=== PATIENT | female | born 1955 | race Caucasian/White ===

== ENCOUNTER 2022-06-16 08:31 | Outpatient (CLI) | payer MEDICARE, BC, SELFPAY | END 2022-06-16 08:32 | disposition home or self-care (01) | LOC: RAD 08:33 | PROVIDERS: PCP Nurse Practitioner Family; Visit Provider Nurse Practitioner Family | DX: I71.21 Aneurysm of the ascending aorta, without rupture (principal); I51.7 Cardiomegaly; I34.0 Nonrheumatic mitral (valve) insufficiency; I35.1 Nonrheumatic aortic (valve) insufficiency | CPT/HCPCS: 93306 ==

== ENCOUNTER 2022-08-07 14:49 | Outpatient (CLI) | payer MEDICARE, BC, SELFPAY ==
[2022-08-07 21:40] LABS: Basophils Absolute Auto 0.03 K/uL (0.00-0.30); Basophils Percent Auto 0.7 % (0.0-3.0); Eosinophils Absolute Auto 0.08 K/uL (0.00-0.50); Eosinophils Percent Auto 1.7 % (0.0-7.0); Hematocrit 40.7 % (33.0-51.0); Hemoglobin* 13.4 gm/dL (12.0-16.0); Immature Granulocytes Abs Auto 0.01 K/uL (0.00-0.30); Immature Granulocytes Pct Auto 0.2 %; Lymphocytes Absolute Auto 1.48 K/uL (0.90-2.90); Lymphocytes Percent Auto 32.1 % (20-44); Mean Corpuscular HGB Conc 33 gm/dL (32-36); Mean Corpuscular Hemoglobin 31 pg (26-34); Mean Corpuscular Volume 95 fL (80-100); Monocytes Percent Auto 7.6 % (0.0-11.0); Neutrophils Absolute Auto 2.66 K/uL (1.7-7.0); Neutrophils Percent Auto 57.7 % (42.0-72.0); Platelet Count* 239 K/uL (140-440); RDW Coefficient of Variation % 12.4 % (11.5-15.5); White Blood Count* 4.61 K/uL (4.50-11.00)
[2022-08-07 21:43] LABS: Slide Review Reflex No
[2022-08-07 21:44] LABS: Albumin* 4.1 g/dL (3.3-5.0); Chloride* 105 mmol/L (96-114); Potassium* 4.6 mmol/L (3.6-5.1); Sodium* 142 mmol/L (135-149)
[2022-08-07 21:46] LABS: Bilirubin Direct* 0.2 mg/dL (0.0-0.5); Bilirubin Total* 0.3 mg/dL (0.1-1.5); Carbon Dioxide* 31 mmol/L (20-32); Creatinine* 0.8 mg/dL (0.5-1.5); Estimated Glomerular Filt Rate 81 ml/min; Total Protein* 6.9 g/dL (6.0-8.3)
[2022-08-07 21:47] LABS: Alanine Aminotransferase* 22 U/L (4-35); Alkaline Phosphatase* 70 U/L (40-150); Aspartate Amino Transferase* 21 U/L (12-35); Blood Urea Nitrogen* 15 mg/dL (7-30); Calcium* 8.8 mg/dL (8.4-10.6); Glucose* 99 mg/dL (60-115)
[2022-08-07 22:37] LABS: Vitamin B12* 265 pg/mL (243-894)
== END 2022-08-07 14:50 | disposition home or self-care (01) ==
PROVIDERS: PCP Nurse Practitioner Family; Visit Provider Nurse Practitioner Family
DX: E03.9 Hypothyroidism, unspecified (principal); R42 Dizziness and giddiness; L60.9 Nail disorder, unspecified; Z51.81 Encounter for therapeutic drug level monitoring
CPT/HCPCS: 80048; 80076; 82607; 84443; 85025

== ENCOUNTER 2022-11-07 06:20 | Outpatient (CLI) | payer MEDICARE, BC, SELFPAY | END 2022-11-07 06:21 | disposition home or self-care (01) | PROVIDERS: PCP Nurse Practitioner Family; Visit Provider Nurse Practitioner Family | DX: Z79.899 Other long term (current) drug therapy (principal); B35.1 Tinea unguium | CPT/HCPCS: 80076 ==

== ENCOUNTER 2023-01-08 09:36 | Outpatient (CLI) | payer MEDICARE, BC, SELFPAY ==
--- NOTE | 2023-01-08 10:15 | CRLHL7_ITS ---
For Patients: As a result of the Century Cures Act, medical imaging exams and procedure reports are released immediately into your electronic medical record. You may view this report before your referring provider. If you have questions, please contact your health care provider. BILATERAL SCREENING MAMMOGRAM WITH COMPUTER-AIDED DETECTION AND TOMOSYNTHESIS TECHNIQUE: CC and MLO views were obtained. These mammographic images have been obtained using full-field digital technique. These mammographic images were interpreted with the benefit of computer-aided detection. Breast Tomosynthesis was used in this interpretation. COMPARISON FILM: 10/12/21, 09/30/20, 10/14/19. FINDINGS: There are scattered areas of fibroglandular density IMPRESSION: There is no radiographic evidence for malignancy. ASSESSMENT: BI-RADS Category 1: Negative RECOMMENDATION: Routine screening mammogram in 1 year. A lay language report of this examination will be provided to the patient. Vernon Crane M.D. Diagnostic Radiologist [email or web address] TIMOTEO/Dictated by: Vernon Crane MD @ 01/11/2023 12:19:00 PM (Electronically Signed)
== END 2023-01-08 09:37 | disposition home or self-care (01) ==
LOC: MAMMO 09:38
PROVIDERS: PCP Nurse Practitioner Family; Visit Provider Nurse Practitioner Family
DX: Z12.31 Encounter for screening mammogram for malignant neoplasm of breast (principal)
CPT/HCPCS: 77063; 77067

== ENCOUNTER 2023-05-25 10:33 | Outpatient (CLI) | payer MEDICARE, BC, SELFPAY ==
--- OUTSIDE RECORDS SUMMARY | 2023-05-25 10:35 | XMS_ITS | Clinical Summary ---
Author Name Unknown Organization [facility] Address [place], [place] [address] Care Team Providers Care Legal Paraprofessional Name Role Phone [place], [place] Primary Care Provider + Allergies No known active allergies Medications Medication Sig Dispensed Refills Start Date End Date Status eszopiclone (LUNESTA) 2 mg tablet Take 2 mg by mouth at bedtime. 0 08/22/2018 Active medical supply, miscellaneous (GRADUATED COMPRESSION STOCKINGS)Indication s:Venous insufficiency Compression level of 20-30 mmHg, panty hose stockings 3 Packet 3 08/29/2018 Active levothyroxine 125 mcg/mL soln Take by mouth. 0 Active fluticasone prp-sod.chl,bicarb 50 mcg- 0.9 % ksps Inhale in the nostril(s) once daily. 2 sprays in each nostril 0 Active oxyCODONE (ROXICODONE) 5 mg immediate release tabletIndications:Po st-operative pain Take 1 tablet by mouth every 4 hours if needed for Pain 15 tablet 0 11/15/2018 Active Active Problems Problem Noted Date Diagnosed Date Acute venous embolism and th rombosis of deep vessels of distal lower extremity 06/14/2005 Overview: LEFT CALF Anemia, unspecified 06/14/2005 Overview: RESOLVED Excessive or frequent menstruation Leiomyoma of uterus, unspecified Social History Tobacco Use Types Packs/Day Years Used Date Smoking Tobacco: Former Smokeless Tobacco: Never Alcohol Use Standard Drinks/Week Comments Yes 0 (1 standard drink = 0.6 oz pur e alcohol) i glass wine/ nightly Social Connections Answer Date Recorded Frequency of Communication with Friends and Fami ly Not on file 07/14/2022 Sex and Gender Information Value Date Recorded Sex Assigned at Not on file Gender Identity Not on file Sexual Orientation Not on file Obstetrics History Last Filed Vital Signs Vital Sign Reading Time Taken Comments Blood Pressure 138/77 11/18/2018 10:57 AM CDT Pulse 75 07/26/2022 10:01 AM CDT Temperature 36.3 ??C (97.3 ??F) 11/15/2018 10:12 AM C DT Respiratory Rate 16 11/18/2018 10:57 AM CDT Oxygen Saturation 98% 11/15/2018 10:36 AM CDT Inhaled Oxygen Concentration - - Weight 83.9 kg (185 lb) 07/26/2022 9:09 AM CDT Height 165.1 cm (5' 5) 07/26/2022 9:09 AM CDT Body Mass Index 30.79 07/26/2022 9:09 AM CDT Plan of Treatment Health Maintenance Due Date Last Done Comments COVID-19 vaccine series (#1) 1956 Pneumococcal series for age 65+ (1 of 2 - PCV) 963 Tdap 1967 Depression screening for age 12+ 1968 BMI (ht and wt on same day) for age 18+ 1974 Hepatitis C screening for age 18-79 1974 Tetanus booster 1976 Colonoscopy through age 75 2001 Mammogram for age 45-75 2001 Zoster (shingles) series for age 50+ (1 of 2) 05/16/19 07 Lipids for age 45-75 04/05/2010 04/05/2005 DEXA/DXA scan for age 65+ 2021 Medicare Wellness for age 65+ 2021 Influenza for age 65+ 01/12/2023 Advance Directives Latest Code Status on File Code Status Date Activated Date Inactivated Comments Full Code 11/15/2018 5:34 AM 11/15/2018 12:52 PM Care Teams Legal Paraprofessional Relationship Specialty Start Date End Date [facility] Alyssa Beltrán [address] [place] [phone] PCP - General 08/28/18
--- OUTSIDE RECORDS SUMMARY | 2023-05-25 10:36 | XMS_ITS | Clinical Summary ---
Author Name Unknown Organization [facility] Address [address] [place] [address] Care Team Providers Care Creel Cleaner Name Role Phone Elsewhere, Pcp Primary Care Provider Unavailabl e Source Comments Patient records contain information from all sites at [facility]. For routine questions regarding patient records, call [phone] during business hours, M-F 8:00 AM - 5:00 PM Central Time. Record requests for emergency care only can be directed to [phone] at any time.[facility] Allergies No known active allergies Medications Medication Sig Dispensed Refills Start Date End Date Status ibuprofen (ADVIL,MOTRIN) 200 mg tablet Take 400 mg by mouth every 6 (six) hours as needed. 0 Active diphenhydrAMINE (BENADRYL) 25 mg tablet Take 25 mg by mouth at bedtime as needed for sleep. 1/2 Tab PRN 0 Active levothyroxine (SYNTHROID, LEVOTHROID) 125 mcg tablet Take 1 tablet (125 mcg total) by mouth daily. 30 tablet 0 01/11/2022 Active Active Problems Problem Noted Date Diagnosed Date Aneurysm Aortic Ascending Without Rupture 2021 Overview: 1. Negative for acute pulmonary embolism. 2. 4.2 cm ascending thoracic aortic aneurysm without dissection. 3. Cardiac enlargement. Polyp Colon 09/23/2019 Overview: Added automatically from request for surgery [id number] Dermatitis Allergic Contact 09/23/2019 Hypothyroidism 09/17/2018 Overview: Lab Results Component Value Date TSH 1.4 10/14/2019 Resolved Problems Problem Noted Date Diagnosed Date Resolved Date Pain Foot Left 08/20/2018 11/10/2020 Overview: Added automatically from request for surgery [id number] Bunion Left 04/18/2018 12/17/2020 Overview: Added automatically from request for surgery [id number] Depression Major One Episode Mild 07/28/2014 11/10/2020 Overview: Major Depressive Disorder, Single Episode, Mild Degree Mild major depression Pain Shoulder Right 11/11/19 21 Immunizations Name Administration Dates Next Due Influenza, Seasonal, Injectable 04/20/2003 Influenza, Unspecified 04/20/2003 Tdap 10/23/2007 Family History Medical History Relation Name Comments Aneurysm Brother Carmine hemangioma in t he brain. Hypertension Brother Carmine Heart attack Father Colon cancer Grandmother Cataracts Mother Heart failure Mother Breast cancer Sister Trang Hyperlipidemia Sister Trang Hypertension Sister Trang Hypothyroidism Sister Trang Osteoarthritis Sister Trang Stroke Sister Trang brain anuerysym Relation Name Status Comments Brother Carmine Father Grandmother Mother Sister Trang Social History Tobacco Use Types Packs/Day Years Used Date Smoking Tobacco: Former Cigarettes Smokeless Tobacco: Never Comments:only smoked sociall y as teen Alcohol Use Standard Drinks/Week Comments Yes 3 (1 standard drink = 0.6 oz pur e alcohol) Humiliation, Afraid, Rape, and Kick questionnair e Answer Date Recorded Within the last year, have y ou been afraid of your partner or ex-partner? No 09/23/2019 Within the last year, have y ou been humiliated or emotionally abused in other ways by your partner or ex-partner? No Within the last year, have y ou been kicked, hit, slapped, or otherwise physically hurt by your partner or ex-partner? No 09/23/2019 Within the last year, have y ou been raped or forced to have any kind of sexual activity by your partner or ex-partner? No 09/23/2019 Social Connection and Isolat ion Panel [NHANES] Answer Date Recorded In a typical week, how many times do you talk on the phone with family, friends, or neighbors? More than three times a week 12/24/2020 Frequency of Social Gatherin gs with Friends and Family Not on file 12/24/2020 How often do you attend chur ch or baptism services? More than 4 times per year 12/24/2020 Active Member of Clubs or Organizations Not on f ile 12/24/2020 How often do you attend meet ings of the clubs or organizations you belong to? Patient declined 12/24/2020 Marital Status Not on file 12/24/2020 AUDIT-C Answer Date Recorded Q1: How often do you have a drink containing alc ohol? 2-3 times a week 12/24/2020 Q2: How many drinks containi ng alcohol do you have on a typical day when you are drinking? 1 or 2 12/24/2020 Q3: How often do you have si x or more drinks on one occasion? Never 12/24/2020 Overall Financial Resource Strain (CARDIA) Answe r Date Recorded How hard is it for you to pa y for the very basics like food, housing, medical care, and heating? Patient declined 12/24/2020 PHQ-2 Answer Date Recorded PHQ-2 Score 0 11/12/2020 [facility] - Occupational Stress Questionnaire Answer Date Recorded Do you feel stress - tense, restless, nervous, or anxious, or unable to sleep at night because your mind is troubled all the time - these days? Very much 12/24/2020 Exercise Vital Sign Answer Date Recorde d On average, how many days pe r week do you engage in moderate to strenuous exercise (like a brisk walk)? 2 days Minutes of Exercise per Session Not on file 12/24/2020 Hunger Vital Sign Answer Date Recorded Within the past 12 months, y ou worried that your food would run out before you got the money to buy more. Never true 12/25/19 21 Within the past 12 months, t he food you bought just didn't last and you didn't have money to get more. Never true 12/24/2020 PRAPARE - Transportation Answer Date Re corded In the past 12 months, has l ack of transportation kept you from medical appointments or from getting medications? No 12/24/2020 Lack of Transportation (Non-Medical) Not on file 12/24/2020 Housing Stability Vital Sign Answer Jordan e Recorded Unable to Pay for Housing in the Last Year Not o n file 12/24/2020 In the last 12 months, how many places have you lived? 1 12/24/2020 In the last 12 months, was t here a time when you did not have a steady place to sleep or slept in a prison (including now)? No 12/24/2020 Depression Answer Date Recor ded PHQ-9 Total Score (max 27) 5 11/12 Nutrition Answer Date Recorded Nutrition: EVOO Fat Source Yes 11/11 Nutrition: Servings of Fruits/Vegetables per Day Not on file 11/11/2022 Dental Answer Date Recorded Dental: Regular Dentist Yes 05/14/19 Employment Answer Date Recorded Employment status Retired 12/24/2020 Education Answer Date Recorded What is the highest level of school you have completed or the highest degree you have received? 12th grade 09/23/2019 Sex and Gender Information Value Date Recorded Sex Assigned at Not on file Gender Identity Not on file Sexual Orientation Not on file Last Filed Vital Signs Vital Sign Reading Time Taken Comments Blood Pressure 161/100 09/16/2021 7:20 PM CDT Pulse 73 09/16/2021 7:20 PM CDT Temperature 37.5 ??C (99.5 ??F) 09/16/2021 6:40 PM CD T Respiratory Rate 20 09/16/2021 6:40 PM CDT Oxygen Saturation 98% 09/16/2021 7:20 PM CDT Inhaled Oxygen Concentration - - Weight 83.2 kg (183 lb 6.8 oz) 09/16/2021 6:38 P M CDT Height 165.1 cm (5' 5) 09/16/2021 6:38 PM CDT Body Mass Index 30.52 09/16/2021 6:38 PM CDT Plan of Treatment Health Maintenance Due Date Last Done Comments Bone Density Scan (Osteoporo sis Screen) 1956 CT Colonography 1955 Cologuard 1955 COVID-19 Vaccine (#1) 1956 Zoster Vaccines (1 of 2) 2006 DTaP,Tdap,and Td Vaccines (2 - Td or Tdap) 10/22/2017 10/23/2007 Pneumococcal vaccine (65+ ye ars) (1 of 1 - PCV) 2021 Mammogram 09/30/2021 09/30/2020, 06/0 06/2019, 09/03/2018, Additional history exists Thyroid Stimulating Hormone (TSH) test for thyroid function 11/10/2021 11/10/2020, 10/14/2019, 08/01/2017, Additional history exists Influenza Vaccine (#1) 2023 04/20/2003, 2002 Depression Screening (Annual PHQ-2) 05/14/2023 Fall Risk Screen (Annual) 05/14/2023 Fasting Glucose for Diabetes Screening 11/11/2023 11/10/2020, 10/14/2019, 11/15/2018, Additional history exists Colonoscopy 11/09/2024 11/10/2019, 08/18/2016 Colorectal Cancer Surveillance 11/09/2024 Hepatitis C Screening Completed 10/14/2019 Advance Directives For more information, please contact: [phone] Latest Code Status on File Code Status Date Activated Date Inactivated Comments Full Code 11/10/2019 10:21 AM 11/10/2019 2:18 PM Question Answer Comments Full Code: Discussed Code Status History Code Status Date Activated Date Inactivated Comments Full Code 11/10/2019 9:16 AM 11/10/2019 10:21 AM Question Answer Comments Full Code: Discussed Care Teams Creel Cleaner Relationship Specialty Start Date End Date Elsewhere, Pcp PCP - General Internal Medicine 01/13/22
--- OUTSIDE RECORDS SUMMARY | 2023-05-25 10:36 | XMS_ITS | Referral Summary ---
Author Name Unknown Organization [facility] Address [address] [place] [address] Care Team Providers Care Miller Helper Name Role Phone Elsewhere, Pcp Primary Care Provider Unavailabl e Source Comments Patient records contain information from all sites at [facility]. For routine questions regarding patient records, call [phone] during business hours, M-F 8:00 AM - 5:00 PM Central Time. Record requests for emergency care only can be directed to [phone] at any time.[facility] Allergies No known active allergies Medications Medication [...] Overview: Added automatically from request for surgery [id number] Dermatitis Allergic Contact 09/23/2019 Hypothyroidism 09/17/2018 Overview: Lab Results Component Value Date TSH 1.4 10/14/2019 Resolved Problems Problem Noted Date Diagnosed Date Resolved Date Pain Foot Left 08/20/2018 11/10/2020 Overview: Added automatically from request for surgery [id number] Bunion Left 04/18/2018 12/17/2020 Overview: Added automatically from request for surgery [id number] Depression Major One Episode Mild 07/28/2014 11/10/2020 Overview: Major Depressive Disorder, Single Episode, Mild Degree Mild major depression Pain Shoulder Right 11/11/19 21 Immunizations Name Administration Dates Next Due Influenza, Seasonal, Injectable 04/20/2003 Influenza, Unspecified 04/20/2003 Tdap 10/23/2007 Social History Tobacco Use Types Packs/Day Years [...] often do you attend chur ch or anabaptist services? More than 4 times per year [...] Answer Date Recorded PHQ-2 Score 0 11/12/2020 [facility] - Occupational Stress [...] place to sleep or slept in a half-way (including now)? No 12/24/2020 Depression Answer Date Recor ded PHQ-9 Total Score (max 27) 5 11/12 Nutrition Answer Date Recorded Nutrition: EVOO Fat Source Yes 11/11 Nutrition: Servings of Fruits/Vegetables per Day Not on file 11/11/2022 Dental Answer Date Recorded Dental: Regular Dentist Yes 05/14/19 23 Employment Answer Date Recorded Employment status Retired [...] 09/16/2021 6:38 PM CDT Plan of Treatment Not on file Advance Directives For more information, please contact: [phone] Latest Code Status on File Code Status Date Activated Date Inactivated Comments Full Code 11/10/2019 10:21 AM 11/10/2019 2:18 PM Question Answer Comments Full Code: Discussed Code Status History Code Status Date Activated Date Inactivated Comments Full Code 11/10/2019 9:16 AM 11/10/2019 10:21 AM Question Answer Comments Full Code: Discussed Care Teams Miller Helper Relationship Specialty Start Date End Date Elsewhere, Pcp PCP - General Internal Medicine 01/13/22
--- OUTSIDE RECORDS SUMMARY | 2023-05-25 10:36 | XMS_ITS ---
Author Name Unknown Organization [facility] Address [address] [place] [address] Care Team Providers Care Application Chemist Name Role Phone Unavailable Unavailable Unavailable Surgery Details Not on file Complications Check Surgery Details section. Procedure Estimated Blood Loss Check Surgery Details section. Procedure Findings Check Surgery Details section. Procedure Specimens Taken Check Surgery Details section.
== END 2023-05-25 10:34 | disposition home or self-care (01) ==
LOC: KYNREF 10:34
PROVIDERS: PCP Nurse Practitioner Family; Visit Provider Nurse Practitioner Family
DX: E03.9 Hypothyroidism, unspecified (principal)
CPT/HCPCS: 84443

== ENCOUNTER 2023-07-15 09:15 | Emergency (ER) | payer MEDICARE, BC, SELFPAY ==
[2023-07-15 09:41] VITALS: BP 122/77; PULSE 83; RESP 20; TEMP 37.7; O2SAT 97; BMI 30.8
--- NOTE | 2023-07-15 10:01 | ED_ITS ---
HPI - General Adult General Chief complaint: Sore Throat Stated complaint: Sore throat, chills, body aches Time Seen by Provider: 07/15/23 09:17 History of Present Illness HPI narrative: 68-year-old female with body aches chills scratchy throat. Been sick for about 4 days. She has had no rigors or shortness of breath. No chest pain. Grandson has similar illness. She has a temperature of 100?, O2 sat is 97% on room air Related Data Previous Rx's Medication Instructions Recorded levothyroxine 125 mcg tablet 125 mcg PO QDAY 90 days #90 tabs 05/28/23 Allergies Allergy/AdvReac Type Severity Reaction Status Date / Time No Known Drug Allergies Allergy Verified 05/25/23 10:15 Review of Systems Status of ROS: Reports: 6 or more systems reviewed and unremarkable except as noted in History and below [facility] Medical History History of thromboembolism ?Z86.718 - Personal history of other venous thrombosis and embolism (ICD-10) Polyp of colon ?K63.5 - Polyp of colon (ICD-10) History of pituitary adenoma ?Z86.018 - Personal history of other benign neoplasm (ICD-10) Surgical History History of cyst of breast (2019) ?Z87.2 - Personal history of diseases of the skin and subcutaneous tissue (ICD-10) Status post tonsillectomy (1964) ?Z90.89 - Acquired absence of other organs (ICD-10) Status post sclerotherapy of varicose veins (2015) ?Z98.890 - Other specified postprocedural states (ICD-10) ?Z86.79 - Personal history of other diseases of the circulatory system (ICD- 10) Status post excision of Thompson's neuroma (2014) ?Z98.890 - Other specified postprocedural states (ICD-10) ?Z86.69 - Personal history of other diseases of the nervous system and sense organs (ICD-10) History of hysterectomy ?Z90.710 - Acquired absence of both cervix and uterus (ICD-10) History of colonoscopy with polypectomy ?Z98.890 - Other specified postprocedural states (ICD-10) ?Z86.010 - Personal history of colonic polyps (ICD-10) History of bunionectomy (2017) ?Z98.890 - Other specified postprocedural states (ICD-10) Family History Brother Brain hemangioma High blood pressure Father Myocardial infarction Coronary artery disease Grandmother Colon cancer Mother Heart failure Sister Breast cancer High blood pressure High cholesterol Thyroid disease Stroke Social History Smoking Status: Never smoker Do you use any of these nicotine containing products: None Second hand tobacco smoke exposure: No How often do you have a drink containing alcohol: monthly or less How many standard drinks containing alcohol do you have on a typical day: 1 or 2 How often do you have six or more drinks on one occasion: Never AUDIT-C Alcohol total score: 1 Non-prescribed substance use: denies use service: No Exam Narrative: Exam Narrative: Objective low-grade temperature a 100? In no marked distress HEENT is unremarkable throat appears clear neck is supple Chest is clear Neurologic is grossly nonfocal Const: Vital Signs, click to edit/add: Vital Signs - 24 hr 07/15/23 09:41 Temperature 100 F H Pulse Rate [Pulse Oximeter] 83 Respiratory Rate 20 Blood Pressure [Le ft Upper Arm] 122/77 Pulse Oximetry 97 Oxygen Delivery Me thod Room Air Course Vital Signs Vital signs: Initial Vital Signs Temperature 100 F H 07/15/23 09:41 Temperature Source Temporal Artery Scan 07/15/23 09:41 Pulse Rate 83 07/15/23 09:41 Pulse Rhythm Regular 07/15/23 09:41 Respiratory Rate 20 07/15/23 09:41 Blood Pressure 122/77 07/15/23 09:41 Blood Pressure Mean 92 07/15/23 09:41 Blood Pressure Position Sitting 07/15/23 09:41 Pulse Oximetry 97 07/15/23 09:41 Oxygen Delivery Method Room Air 07/15/23 09:41 Vital Signs Temperature 100 F H 07/15/23 09:41 Pulse Rate 83 07/15/23 09:41 Respiratory Rate 20 07/15/23 09:41 Blood Pressure 122/77 07/15/23 09:41 Pulse Oximetry 97 07/15/23 09:41 Oxygen Delivery Method Room Air 07/15/23 09:41 Temperature 100 F H 07/15/23 09:41 Pulse Rate 83 07/15/23 09:41 Respiratory Rate 20 07/15/23 09:41 Blood Pressure 122/77 07/15/23 09:41 Pulse Oximetry 97 07/15/23 09:41 Oxygen Delivery Method Room Air 07/15/23 09:41 Medical Decision Making MDM Narrative Medical decision making narrative: [age] year white female with sore throat body aches flu-like illness for about 4 days. Will check viral studies as well as strep test. They were exposed to strep with another family member. Will call and medication if needed. Given her duration of the flu I do not like symptoms I do not think she needs Tamiflu at this point will see if she has a positive strep test. Disposition pending findings. We can call them with the results. Tylenol, Advil, rest fluids recommended. Follow up with primary care in 2 3 days not imp roving return to ED sooner problems or concerns. Addendum: The patient is positive for strep and influenza a. She has been sick for about 4 days so I do not think Tamiflu would be indicated I would treat her with antibiotics for her strep. Would call in [employer] 500 t.i.d. times 10 days. Lab Data Labs: Lab Results 07/15/23 Range/Units Unknown SARS-CoV-2 (PCR) Negative SARS-CoV-2 (Negative) Influenza Type A (PCR) POSITIVE PCR FLU A A (Negative) Influenza Type B (PCR) Negative PCR FLU B (Negative) RSV (PCR) Negative PCR RSV (Negative) Group A Strep DNA DETECTED A (Not Detectd) Discharge Plan Discharge Clinical Impression: Acute viral syndrome, Strep pharyngitis Patient Disposition: Home, Self-Care Condition: Stable Additional Instructions: Rest, fluids, Tylenol or Advil as needed, we will call back with strep and viral study results. Recheck with regular doctor in 2-3 days not improving, return to ED sooner problems or concerns. Activity Level: Light activity Discharge Diet: Regular Prescriptions: No Action levothyroxine 125 mcg tablet 125 mcg PO QDAY 90 Days Qty: 90 3RF Follow Up/Referrals: Sarai He, SOFTWARE SAL[employer], [employer] [Primary Care Provider] - Stand Alone Forms: [employer] Info Instructions
[2023-07-15 10:10] LABS: PCR FLU A POSITIVE PCR FLU A (Negative); PCR FLU B Negative PCR FLU B (Negative); PCR RSV Negative PCR RSV (Negative); SARS PCR* Negative SARS-CoV-2 (Negative)
[2023-07-15 10:27] LABS: Strep A DNA Probe* DETECTED (Not Detectd)
== END 2023-07-15 10:30 | disposition home or self-care (01) ==
PROVIDERS: Emergency Provider Family Medicine; PCP Nurse Practitioner Family
DX: J02.0 Streptococcal pharyngitis (principal)
CPT/HCPCS: 87631; 87651; 99283

== ENCOUNTER 2023-10-19 08:01 | Outpatient (CLI) | payer MEDICARE, BC, SELFPAY ==
--- OUTSIDE RECORDS SUMMARY | 2023-10-19 08:05 | XMS_ITS | Clinical Summary ---
Author Organization [employer] [facility] Address [place], [place] [address] Care Team Providers Care Nut Tapper Name Role Phone [place], [place] Primary Care Provider + Allergies No known active allergies Medications Medication Sig Dispensed Refills Start Date End Date Status eszopiclone (LUNESTA) 2 mg tablet Take 2 mg by mouth at bedtime. 08/22/2018 Active medical supply, miscellaneous (GRADUATED COMPRESSION STOCKINGS)Indication s:Venous insufficiency Compression level of 20-30 mmHg, panty hose stockings 3 Packet 3 08/29/2018 Active levothyroxine 125 mcg/mL soln Take by mouth. Active fluticasone prp-sod.chl,bicarb 50 mcg- 0.9 % ksps Inhale in the nostril(s) once daily. 2 sprays in each nostril Active oxyCODONE (ROXICODONE) 5 mg immediate release tabletIndications:Po st-operative pain Take 1 tablet by mouth every 4 hours if needed for Pain 15 tablet 11/15/2018 Active Active Problems Problem Noted Date [...] Health Maintenance Due Date Last Done Comments Tdap 1967 Depression screening for age 12+ [...] 2021 Medicare Wellness for age 65+ 2021 Pneumococcal series for age 65+ (1 of 1 - PCV) 022 COVID-19 vaccine series ( - season) 3 Influenza for age 65+ 01/13/2024 Procedures Procedure Name Priority Date/Time Associated Diagnosis Comments LIPID PANEL Timed 04/05/2005 2:30 PM RESEARCH PROFESSOR from Last 3 Months or Most Recently Relevant to Health Maintenance Results * LIPID PANEL (04/05/2005 2:30 PM RESEARCH PROFESSOR) CHOLESTEROL,TOTAL 178 110 - 199 mg/dL [facility] TRIGLYCERIDES 108 40 - 149 mg/dL [facility] HDL CHOLESTEROL 73 >40 mg/dL [facility] CHOL/HDL RATIO 2.44 <4.51 [facility] LDL CHOLESTEROL 83 <131 mg/dL [facility] PATIENT STATUS Fasting [facility] 04/05/2005 2:30 PM RESEARCH PROFESSOR 04/05/2005 6:35 PM RESEARCH PROFESSOR Nai Tomlin CHEMISTRY [facility]ORY INTERNAL ZIP [phone] [address] from Last 3 Months or Most Recently Relevant to Health Maintenance Advance Directives * Full Code (Latest Code Status on File) Date Activated Date Inactivated Comments 11/15/2018 5:34 AM 11/15/2018 12:52 PM Care Teams Nut Tapper Relationship Specialty Start Date End Date [facility] [place] [phone] PCP - General 08/28/18
== END 2023-10-19 08:02 | disposition home or self-care (01) ==
LOC: RAD 08:03
PROVIDERS: PCP Nurse Practitioner Family; Visit Provider Nurse Practitioner Family
DX: I71.21 Aneurysm of the ascending aorta, without rupture (principal); R93.1 Abnormal findings on diagnostic imaging of heart and coronary circulation
CPT/HCPCS: 93306

== ENCOUNTER 2024-01-07 19:48 | Outpatient (CLI) | payer MEDICARE, BC, SELFPAY ==
--- OUTSIDE RECORDS SUMMARY | 2024-01-07 19:51 | XMS_ITS | Clinical Summary ---
Author Organization [employer] [facility] Address [place], [place] [address] Care Team Providers Care Stone Setter Apprentice Name Role Phone [place], [place] Primary Care Provider + Allergies No [...] needed for Pain 15 tablet 11/15/2018 Active carvediloL (Coreg) 6.25 mg tabletIndications:Co ngestive heart failure, unspecified HF chronicity, unspecified heart failure type (HC),HTN (hypertension) Take 1 Tablet (6.25 mg) by mouth two times daily with meals. 60 Tablet 3 12/13/2023 Active Active Problems Problem Noted Date Diagnosed Date Acute venous embolism and th rombosis of deep vessels of distal lower extremity 06/14/2005 Overview: LEFT CALF Anemia, unspecified 06/14/2005 Overview: RESOLVED Excessive or frequent menstruation Leiomyoma of uterus, unspecified Encounters Date Type Department Care Team Description 12/13/2023 10:30 AM CDT Office Visit [facility] [place] [address] [place] [address] Jacoby Dyer MD 10/19/2023 8:00 AM CDT Ancillary Procedure [facility] [place] [address] [place] [address] from Last 3 Months Social History Tobacco Use Types Packs/Day Years [...] Procedure Name Priority Date/Time Associated Diagnosis Comments ECHO TTE COMPLETE WO CONTRAST Routine 10/19/2023 8:52 AM CDT Aneurysm of ascending aorta without rupture (HC) LIPID PANEL Timed 04/05/2005 2:30 PM ADULT SECONDARY EDUCATION INSTRUCTOR from Last 3 Months or Most Recently Relevant to Health Maintenance Results * ECHO TTE COMPLETE WO CONTRAST (10/19/2023 8:52 AM CDT) AORTIC VALVE MEAN PG 5 mmHg EJECTION FRACTION 53 % PEAK TR VELOCITY 2.3 m/s LVEDD 4.5 cm EJECTION FRACTION 40 - 45% Anatomical Region Laterality Modality Ultrasound 10/19/2023 8:23 AM CDT Narrative 10/19/2023 9:09 AM CDT ECHOCARDIOGRAM CLAUDIA FERRELL ?Accession#: ?? [id number] : ?1955 68 years Study Date: ?? 10/19/2023 8:23:45 AM Gender: F ? BP: ? 146/77 mmHg Height: 165.00 cm ? BSA: ?1.91 m? ? ? Weight: 84.00 kg ?Tech: ? MBF ?Referring MD: LUIS CARLOS HE Site: ? [facility] Reading Location: Mobile OP Patient Location: Outpatient. Procedure: 2D, Color Doppler and Spectral Doppler. Indication for study: Aneurysm of ascending aorta without rupture Cardiac Rhythm: Regular.Study quality: Fair. Final Impressions: 1. Normal LV size, normal wall thickness, mildly reduced global systolic function with an estimated EF of 40 - 45%. 2. Right ventricular cavity size is normal, global systolic RV function is normal. 3. The ascending aorta is dilated with a maximal diameter of 4.3 cm. 4. The inferior vena cava is dilated, respiratory size variation less than 50%. Chamber Sizes and Function Normal left ventricular size, normal wall thickness, mildly reduced global systolic function with an estimated EF of 40 - 45%. Left atrial size is normal. Right ventricular cavity size is normal, global systolic RV function is normal. The right atrium is normal. Right atrial volume index is 36 ml/m? ? ?. Right atrial area is 20 cm? ? ?. The pulmonary artery is not well visualized. The sinus of Valsalva is normal sized. The ascending aorta is dilated. Valves, RV Pressures and Diastolic Function The aortic valve is trileaflet, no stenosis and trivial regurgitation. The mitral valve is sclerotic, trace mitral regurgitation. Mitral annular calcification is present. Spectral Doppler shows Grade 1 pattern of LV diastolic filling. The tricuspid valve is normal in structure. Tricuspid regurgitation is mild regurgitation. The tricuspid regurgitant velocity is 2.2 m/s, the estimated right ventricular systolic pressure is 20 mmHg plus right atrial pressure. The pulmonic valve is not well visualized. Trace pulmonary regurgitation. Masses, Effusion, Shunts There is no pericardial effusion. The inferior vena cava is dilated, respiratory size variation less than 50%. No left to right shunting was detected by limited color flow Doppler interrogation of the interatrial septum. MEASUREMENTS AND CALCULATIONS 2-D Measurements and LV Function: LVID (d) 4.5 cm LV FS% (2D) ?? 20 % LVID (s) 3.6 cm LVOT diameter 2.0 cm IVS (d) ??1.0 cm HR ?61 bpm LVPW (d) 0.9 cm LA Vol index ??31 ml/m2 Ao Sinus 3.6 cm RA Vol index ??36 ml/m2 Asc Ao ?? 4.3 cm RA area ? 20 cm?RV Max 4C (d) 4.5 cm Diastology: Mitral ?Tissue Doppler E Peak 0.9 m/s ??e', Septum ? 0.06 m/s A Peak 1.1 m/s ??e', Lateral ?0.09 m/s E/A ?0.8 ?E/e' Average ?? 12.42 DT ? 265 msec Aortic Valve: Vmax ? 1.6 m/s ??RAMONE (V) ?? 2.39 cm? ? ? VTI ?0.37 m ?? RAMONE (I) ?? 2.24 cm? ? ? LVOT V max 1.2 m/s ??Max PG ?11 mmHg LVOT VTI ?? 0.26 m ?? Mean PG ?? 5 mmHg SV ? 82 ml ?Dim Index 0.72 SV index ?? 43 ml/m? ? ? CO ?5.0 l/min ?CI ?2.6 l/min/m? ? ? Mitral Valve: MVA ?2.9 cm? ? ? MV P 1/2 77 msec Tricuspid Valve and estimated PA pressures: TR Vmax 2.2 m/s TAPSE 2.3 cm TR maxG 20 mmHg . This study was interpreted by an [facility] accredited facility. CC: [facility] ([facility]) [facility]. ??Final ?? Procedure Note Vernon James MD - 10/19/2023 ECHOCARDIOGRAM CLAUDIA FERRELL : 1955 68 years Study Date: 10/19/2023 8:23:45 AM Gender: F BP: 146/77 mmHg Height: 165.00 cm BSA: 1.91 m? ? ? Weight: 84.00 kg Tech: [id number] Referring MD: LUIS CARLOS HE Site: [facility] Reading Location: Mobile OP Patient Location: Outpatient. Procedure: 2D, Color Doppler and Spectral Doppler. Indication for study: Aneurysm of ascending aorta without rupture Cardiac Rhythm: Regular.Study quality: Fair. Final Impressions: 1. Normal LV size, normal wall thickness, mildly reduced global systolicfunction with an estimated EF of 40 - 45%. 2. Right ventricular cavity size is normal, global systolic RV functionis normal. 3. The ascending aorta is dilated with a maximal diameter of 4.3 cm. 4. The inferior vena cava is dilated, respiratory size variation lessthan 50%. Chamber Sizes and Function Normal left ventricular size, normal wall thickness, mildly reduced globalsystolic function with an estimated EF of 40 - 45%. Left atrial size isnormal. Right ventricular cavity size is normal, global systolic RVfunction is normal. The right atrium is normal. Right atrial volume indexis 36 ml/m? ? ?. Right atrial area is 20 cm? ? ?. The pulmonary artery is notwell visualized. The sinus of Valsalva is normal sized. The ascendingaorta is dilated. Valves, RV Pressures and Diastolic Function The aortic valve is trileaflet, no stenosis and trivial regurgitation. Themitral valve is sclerotic, trace mitral regurgitation. Mitral annularcalcification is present. Spectral Doppler shows Grade 1 pattern of LVdiastolic filling. The tricuspid valve is normal in structure. Tricuspidregurgitation is mild regurgitation. The tricuspid regurgitant velocity is2.2 m/s, the estimated right ventricular systolic pressure is 20 mmHg plusright atrial pressure. The pulmonic valve is not well visualized. Tracepulmonary regurgitation. Masses, Effusion, Shunts There is no pericardial effusion. The inferior vena cava is dilated,respiratory size variation less than 50%. No left to right shunting wasdetected by limited color flow Doppler interrogation of the interatrialseptum. MEASUREMENTS AND CALCULATIONS 2-D Measurements and LV Function: LVID (d) 4.5 cm LV FS% (2D) 20 % LVID (s) 3.6 cm LVOT diameter 2.0 cm IVS (d) 1.0 cm HR 61 bpm LVPW (d) 0.9 cm LA Vol index 31 ml/m2 Ao Sinus 3.6 cm RA Vol index 36 ml/m2 Asc Ao 4.3 cm RA area 20 cm? ? ? RV Max 4C (d) 4.5 cm Diastology: Mitral Tissue Doppler E Peak 0.9 m/s e', Septum 0.06 m/s A Peak 1.1 m/s e', Lateral 0.09 m/s E/A 0.8 E/e' Average 12.42 DT 265 msec Aortic Valve: Vmax 1.6 m/s RAMONE (V) 2.39 cm? ? ? VTI 0.37 m RAMONE (I) 2.24 cm? ? ? LVOT V max 1.2 m/s Max PG 11 mmHg LVOT VTI 0.26 m Mean PG 5 mmHg SV 82 ml Dim Index 0.72 SV index 43 ml/m? ? ? CO 5.0 l/min CI 2.6 l/min/m? ? ? Mitral Valve: MVA 2.9 cm? ? ? MV P 1/2 77 msec Tricuspid Valve and estimated PA pressures: TR Vmax 2.2 m/s TAPSE 2.3 cm TR maxG 20 mmHg . This study was interpreted by an [facility] accredited facility. CC: [facility] (med records) [facility]. Final Luis Carlos He OUTSIDE PLANT SUPERVISOR ECHO ORD * LIPID PANEL (04/05/2005 2:30 PM ADULT SECONDARY EDUCATION INSTRUCTOR) CHOLESTEROL,TOTAL 178 110 - 199 mg/dL [facility] TRIGLYCERIDES 108 40 - 149 mg/dL [facility] HDL CHOLESTEROL 73 >40 mg/dL [facility] CHOL/HDL RATIO 2.44 <4.51 [facility] LDL CHOLESTEROL 83 <131 mg/dL [facility] PATIENT STATUS Fasting [facility] 04/05/2005 2:30 PM ADULT SECONDARY EDUCATION INSTRUCTOR 04/05/2005 6:35 PM ADULT SECONDARY EDUCATION INSTRUCTOR Nai Tomlin CHEMISTRY [facility] INTERNAL ZIP [phone] [address] from Last 3 Months or Most Recently Relevant to Health Maintenance Advance Directives * Full Code (Latest Code Status on File) Date Activated Date Inactivated Comments 11/15/2018 5:34 AM 11/15/2018 12:52 PM Care Teams Stone Setter Apprentice Relationship Specialty Start Date End Date [facility] Alyssa [address]tr[address] [place] [phone] PCP - General 08/28/18
--- NOTE | 2024-01-15 11:37 | W.PM.SLEEP ---
Sleep Study Details Details Interpreting Provider: Rivera Date of Sleep Study: 01/07/24 Sleep Study Details: STUDY TYPE:? Hospital-based attended with CPAP titration ? BMI:? 30.8 ORDERING PROVIDER:Poonam He INDICATION:? Concern about sleep apnea ? SLEEP SUMMARY:? 408.5 minutes total sleep time RESPIRATORY SUMMARY:? Mean oxygen awake 94 sleep 93 minimum 79 10 minutes oxygen between 80 and 88% AHI 13.8, supine AHI 33, nonsupine AHI 6.1. (CMS guidelines) supine REM AHI 61.1 CPAP titration was performed up to a pressure of 6 which decreased AHI 26.4 including 27 minutes of REM stage sleep in the supine position. This was not completely successful but nearly completely successful CPAP titration PERIODIC LIMB MOVEMENTS OF SLEEP:? None CARDIAC:? Awake 62 asleep 57, PVCs and PACs noted IMPRESSION:? Mild to moderate obstructive sleep apnea with supine REM dependency. Nearly completely successful CPAP titration at pressure of 6 RECOMMENDATION: Recommend initiate CPAP AutoSet at pressure 4-17 with follow-up in 1 month.
== END 2024-01-07 19:49 | disposition home or self-care (01) ==
PROVIDERS: PCP Nurse Practitioner Family; Visit Provider Nurse Practitioner Family
DX: G47.33 Obstructive sleep apnea (adult) (pediatric) (principal)
CPT/HCPCS: 95811

== ENCOUNTER 2024-03-19 09:50 | Outpatient (CLI) | payer MEDICARE, BC, SELFPAY ==
--- OUTSIDE RECORDS SUMMARY | 2024-03-19 09:57 | XMS_ITS | Clinical Summary ---
Author Organization [employer] [facility] Address [place], [place] [address] Care Team Providers Care Early Morning Name Role Phone [place], [place] Primary Care Provider + Allergies No [...] deep vessels of distal lower extremity 06/14/2005 Overview (03/26/2006): LEFT CALF Anemia, unspecified 06/14/2005 Overview (03/26/2006): RESOLVED Excessive or frequent menstruation Leiomyoma of [...] 07/26/2022 9:09 AM CDT Plan of Treatment Upcoming Encounters Date Type Department Care Team (Late st Contact Info) Description 03/19/2024 10:00 AM TAX SERVICES SPECIALIST Ancillary Procedure [facility] [address] [place] [address] Health Maintenance Due Date Last Done Comments [...] PCV) 022 COVID-19 vaccine series ( - 2023-25 season) 4 Influenza for age 65+ 01/13/2024 Procedures Procedure Name Priority Date/Time Associated Diagnosis Comments LIPID PANEL Timed 04/05/2005 2:30 PM TAX SERVICES SPECIALIST from Last 3 Months or Most Recently Relevant to Health Maintenance Results * LIPID PANEL (04/05/2005 2:30 PM TAX SERVICES SPECIALIST) CHOLESTEROL,TOTAL 178 110 - 199 mg/dL [facility] TRIGLYCERIDES 108 40 - 149 mg/dL [facility] HDL CHOLESTEROL 73 >40 mg/dL [facility] CHOL/HDL RATIO 2.44 <4.51 [facility] LDL CHOLESTEROL 83 <131 mg/dL [facility] PATIENT STATUS Fasting [facility] 04/05/2005 2:30 PM TAX SERVICES SPECIALIST 04/05/2005 6:35 PM TAX SERVICES SPECIALIST Nai Tomlin CHEMISTRY [facility] INTERNAL ZIP [phone] [place] [id number] from Last 3 Months or Most Recently Relevant to Health Maintenance Advance Directives * Full Code (Latest Code Status on File) Date Activated Date Inactivated Comments 11/15/2018 5:34 AM 11/15/2018 12:52 PM Care Teams Early Morning Relationship Specialty Start Date End Date [facility] Alyssa Beltrán [address] [facility] [facility] [place] [phone] PCP - General 08/28/18
== END 2024-03-19 09:51 | disposition home or self-care (01) ==
LOC: RAD 09:51
PROVIDERS: PCP Nurse Practitioner Family; Visit Provider Internal Medicine
DX: I50.9 Heart failure, unspecified (principal); I51.7 Cardiomegaly; I35.1 Nonrheumatic aortic (valve) insufficiency
CPT/HCPCS: 93306

== ENCOUNTER 2024-07-08 17:31 | Emergency (ER) | payer MEDICARE, BC, SELFPAY ==
[2024-07-08] VITALS (12 sets, daily range): BP systolic 127; BP diastolic 78; PULSE 55–87; RESP 14–30; O2SAT 92–97; BMI 32.0
--- OUTSIDE RECORDS SUMMARY | 2024-07-08 17:34 | XMS_ITS | Clinical Summary ---
Author Organization [employer] [facility] Address [address] [place] [id number] Care Team Providers Care Respiratory Technician Name Role Phone [place], [place] Primary Care Provider + Allergies No known active allergies Medications eszopiclone (LUNESTA) 2 mg tablet Take 2 mg by mouth at bedtime. 9 Active medical supply, miscellaneous (GRADUATED COMPRESSION STOCKINGS)Indicat ions:Venous insufficiency Compression level of 20-30 mmHg, panty hose stockings 3 Packet 3 9 Active levothyroxine 125 mcg/mL soln Take by mouth. Act melinda fluticasone prp-sod.chl,bicar b 50 mcg- 0.9 % ksps Inhale in the nostril(s) once daily. 2 sprays in each nostril Active oxyCODONE (ROXICODONE) 5 mg immediate release tabletIndications :Post-operative pain Take 1 tablet by mouth every 4 hours if needed for Pain 15 tablet 11/15/2018 10:33 AM CDT 9 Active carvediloL (Coreg) 6.25 mg tabletIndications :Congestive heart failure, unspecified HF chronicity, unspecified heart failure type (HC),HTN (hypertension) Take 1 Tablet (6.25 mg) by mouth two times daily with meals. 60 Tablet 3 4 Active Active Problems Problem Noted Date Diagnosed Date Acute venous embolism and th rombosis of deep vessels of distal lower extremity 06/14/2005 Overview (03/26/2006): LEFT CALF Anemia, unspecified 06/14/2005 Overview (03/26/2006): RESOLVED Excessive or frequent menstruation Leiomyoma of uterus, unspecified Encounters Date Type Department Care Team Description 07/08/[address] [facility] [address] [place] [address] [place], [place] Chest Pain 07/08/2024 Telephone [facility] [address] [facility] [address] [place] [address] Jacoby Dyer MD Pain (heart / chest pain ) 05/23/2024 Telephone [facility] [address] [place] [address] [place], [place] [id number] Jacoby Dyer MD Health Maintenance Update from Last 3 Months Social History Tobacco Use Types Packs/Day Years Used Date Smoking Tobacco: Former Smokeless Tobacco: Never Alcohol Use Standard Drinks/Week Comments Yes 0 (1 standard drink = 0.6 oz pur e alcohol) i glass wine/ nightly Social Connections Answer Date Recorded Frequency of Communication with Friends and Fami ly Not on file 07/14/2022 Comments No Sex and Gender Information Value Date Recorded Sex Assigned at Not on file Legal Sex Female 5:50 AM RESEARCH LABORATORY TECHNICIAN Gender Identity Not on file Sexual Orientation Not on file Obstetrics History Last Filed Vital Signs Vital Sign Reading Time Taken Comments Blood Pressure 138/77 11/18/2018 10:57 AM CDT Pulse 75 07/26/2022 10:01 AM CDT Temperature 36.3 C (97.3 F) 11/15/2018 10:12 AM CDT Respiratory Rate 16 11/18/2018 10:57 AM CDT [...] Hepatitis C screening for age 18-79 1974 Pneumococcal series for age 50+ (1 of 2 - PCV) 976 Tetanus booster 1976 Colonoscopy through age 75 2001 Mammogram for age 45-75 2001 Zoster (shingles) series for age 50+ (1 of 2) 05/16/19 07 Lipids for age 45-75 04/05/2010 04/05/2005 DEXA/DXA scan for age 65+ 2021 Medicare Wellness for age 65+ 2021 COVID-19 vaccine series (2023- season) 4 Influenza for age 65+ 01/13/2024 RSV vaccine for adults or pr egnancy (1 - 1-dose 75+ series) 2031 Procedures Procedure Name Priority Date/Time Associated Diagnosis Comments LIPID PANEL Timed 04/05/2005 2:30 PM RESEARCH LABORATORY TECHNICIAN from Last 3 Months or Most Recently Relevant to Health Maintenance Results * LIPID PANEL (04/05/2005 2:30 PM RESEARCH LABORATORY TECHNICIAN) CHOLESTEROL,TOTAL 178 110 - 199 mg/dL [facility] TRIGLYCERIDES 108 40 - 149 mg/dL [facility] HDL CHOLESTEROL 73 >40 mg/dL [facility] CHOL/HDL RATIO 2.44 <4.51 [facility] LDL CHOLESTEROL 83 <131 mg/dL [facility] PATIENT STATUS Fasting [facility] 04/05/2005 2:30 PM RESEARCH LABORATORY TECHNICIAN 04/05/2005 6:35 PM RESEARCH LABORATORY TECHNICIAN us Nai Tomlin CHEMISTRY Final Result [facility] INTERNAL ZIP [phone] [address] from Last 3 Months or Most Recently Relevant to Health Maintenance Insurance [place] BL[place] MR PB ONLY [place] HB ONLY MEDICARE PART B HB ONLY Advance Directives * Full Code (Latest Code Status on File) Date Activated Date Inactivated Comments 11/15/2018 5:34 AM 11/15/2018 12:52 PM Care Teams Respiratory Technician Relationship Specialty Start Date End Date [facility] Alyssa Beltrán [address] [facility] [place] [phone] PCP - General 08/28/18
--- NOTE | 2024-07-08 17:53 | ED_ITS ---
HPI - General Adult General Chief complaint: Chest Pain Stated complaint: Heart pain Time Seen by Provider: 07/08/24 17:39 History of Present Illness HPI narrative: Patient had chest pain at 10pm last night and then again at about noon while washing dishes. Describes as sharp pain in center of chest . Patient has history of blood clots. Recent travel. 69-year-old woman presenting to the emergency department concern of chest pain. This is a sharp pain and occurred yesterday around 10:00 p.m.. Spontaneously resolved. Later notes that the 1st event lasted an hour approximately. Not associated with shortness of breath or nausea. Today again recurrence around noon but less intense. She was not stressing herself physically. She thought the 1st occurrence might have been related to some emotional stress. At the moment she has no pain. Pain was not pleuritic. Midsternal pain when occurred. She is not short of breath currently. No lightheadedness. She just got to thinking that maybe she should pay attention to this noting a cardiac history of an aneurysm that is being monitored -- I see thoracic ascending aortic aneurysm -- and a valvular issue unspecified. Does also have a history of DVT, gestures to the left leg, years ago. Traveled on a red eye a day or 2 ago from [place]. Had been active hiking in the area without difficulty passing her friends she noted. Reviewing records shows an echocardiogram from March of 2024. Normal LV size moderately increased wall thickness normal systolic function with EF of 55-60%. Mildly enlarged left atrium ascending aorta dilated up to 4.1 cm noted to have improved left ventricular systolic function Related Data Home Medications ?Medication ?Instructions ?Recorded ?Confirmed Magnesium Malate PO 05/12/24 taurine 500 mg capsule 500 mg PO QDAY 05/12/24 07/08/24 Previous Rx's ?Medication ?Instructions ?Recorded levothyroxine 125 mcg tablet 125 mcg PO QDAY 90 days #90 tabs 05/28/23 carvedilol 6.25 mg tablet (Coreg) 6.25 mg PO BID #180 tabs 05/20/24 Allergies Allergy/AdvReac Type Severity Reaction Status Date / Time No Known Drug Allergies Allergy Verified 07/08/24 20:13 Review of Systems Status of ROS: Reports: 6 or more systems reviewed and unremarkable except as noted in History and below [facility] Medical History History of thromboembolism ?Z86.718 - Personal history of other venous thrombosis and embolism (ICD-10) Polyp of colon ?K63.5 - Polyp of colon (ICD-10) History of pituitary adenoma ?Z86.018 - Personal history of other benign neoplasm (ICD-10) Surgical History History of cyst of breast (2019) ?Z87.2 - Personal history of diseases of the skin and subcutaneous tissue (ICD-10) Status post tonsillectomy (1964) ?Z90.89 - Acquired absence of other organs (ICD-10) Status post sclerotherapy of varicose veins (2015) ?Z98.890 - Other specified postprocedural states (ICD-10) ?Z86.79 - Personal history of other diseases of the circulatory system (ICD- 10) Status post excision of Thompson's neuroma (2013) ?Z98.890 - Other specified postprocedural states (ICD-10) ?Z86.69 - Personal history of other diseases of the nervous system and sense organs (ICD-10) History of hysterectomy ?Z90.710 - Acquired absence of both cervix and uterus (ICD-10) History of colonoscopy with polypectomy ?Z98.890 - Other specified postprocedural states (ICD-10) ?Z86.010 - Personal history of colonic polyps (ICD-10) History of bunionectomy (2017) ?Z98.890 - Other specified postprocedural states (ICD-10) Family History Brother Brain hemangioma High blood pressure Father Myocardial infarction Coronary artery disease Grandmother Colon cancer Mother Heart failure Sister Breast cancer High blood pressure High cholesterol Thyroid disease Stroke Social History Smoking Status: Never smoker Do you use any of these nicotine containing products: None Second hand tobacco smoke exposure: No How often do you have a drink containing alcohol: 2-4 times a month How many standard drinks containing alcohol do you have on a typical day: 1 or 2 How often do you have six or more drinks on one occasion: Never AUDIT-C Alcohol total score: 2 Non-prescribed substance use: denies use service: No Exam Narrative: Exam Narrative: Pleasant. NAD. Breathing easily. Talkative. Lungs are clear. Heart in regular rate and rhythm. Trace early systolic murmur? extremities with trace pretibial edema bilaterally. Negative Homans. Abdomen is soft nontender. No masses appreciated. No pain to palpation of her chest. Const: Vital Signs, click to edit/add: Vital Signs - 24 hr 07/08/24 17:46 07/08/24 18:12 07/08/24 18:15 Pulse Rate 55 L 60 Pulse Rate [Pulse Oximeter] 87 Respiratory Rate 16 Blood Pressure [Le ft Upper Arm] 127/78 Pulse Oximetry 96 96 97 Oxygen Delivery Me thod Room Air 07/08/24 18:30 07/08/24 18:45 07/08/24 19:00 Pulse Rate 59 L 60 65 Pulse Rate [Pulse Oximeter] Respiratory Rate 14 19 Blood Pressure [Le ft Upper Arm] Pulse Oximetry 95 94 97 Oxygen Delivery Me thod 07/08/24 19:15 07/08/24 19:30 07/08/24 19:45 Pulse Rate 66 67 67 Pulse Rate [Pulse Oximeter] Respiratory Rate 24 Blood Pressure [Le ft Upper Arm] Pulse Oximetry 97 95 92 Oxygen Delivery Me thod 07/08/24 20:06 07/08/24 20:15 07/08/24 20:30 Pulse Rate 64 Pulse Rate [Pulse Oximeter] Respiratory Rate 30 H 15 14 Blood Pressure [Le ft Upper Arm] Pulse Oximetry 97 Oxygen Delivery Me thod Documenting provider has reviewed patient's vital signs: yes Course Vital Signs Vital signs: Initial Vital Signs Pulse Rate 87 07/08/24 17:46 Respiratory Rate 16 07/08/24 17:46 Blood Pressure 127/78 07/08/24 17:46 Blood Pressure Mean 94 07/08/24 17:46 Pulse Oximetry 96 07/08/24 17:46 Oxygen Delivery Method Room Air 07/08/24 17:46 Vital Signs Pulse Rate 87 07/08/24 17:46 Respiratory Rate 16 07/08/24 17:46 Blood Pressure 127/78 07/08/24 17:46 Pulse Oximetry 96 07/08/24 17:46 Oxygen Delivery Method Room Air 07/08/24 17:46 Pulse Rate 64 07/08/24 20:15 Respiratory Rate 14 07/08/24 20:30 Blood Pressure 127/78 07/08/24 17:46 Pulse Oximetry 97 07/08/24 20:15 Oxygen Delivery Method Room Air 07/08/24 17:46 Medications Administered Medications: Discontinued Medications Generic Name Dose Route Start Last Admin Trade Name Adelita PRN Reason Stop Dose Admin Sodium Chloride 500 mls @ 1,000 mls/hr 07/08/24 19:22 07/08/24 20:37 0.9 % Sodium Chloride 500 Ml IV 07/08/24 19:51 Infused .Q30M ONE Infusion Medical Decision Making MDM Narrative Medical decision making narrative: Independently review EKG shows sinus rhythm with a PVC. On scene ischemic changes otherwise. Rate of 68. I do inquire about the time of this EKG with she felt this discomfort as a might correspond with this PVC but she denies feeling pain during EKG Does not sound to be ischemic cardiovascular but certainly possible. I would favor PVCs though the EKG does show evidence of a PVC and she noted not feeling this discomfort. I suppose it could also be progression of aneurysm or a dissection in here. Seems less likely to be pulmonary embolus. DVT prior she describes as unprovoked but had been present for quite some time. She is no longer anticoagulated nor takes aspirin. Labs are normal, reassuring. I think less likely to have pulmonary embolus but would still have concern of potential dissection considering ascending aortic aneurysm history. Reassuring though is D-dimer. Over time in the emergency department was observed to show more PVCs on monitor; remained asymptomatic. We decided to proceed with CTA of chest looking for potential dissection and expanding that to include abdomen and pelvis if there is cause. Challenges in transmission of images. I have independently reviewed these images. Pending radiology over-read at change of shift Medical Records Medical records reviewed: Yes I reviewed the patient's medical records Lab Data Lab results reviewed: Yes I reviewed the patient's lab results Labs: Lab Results 07/08/24 07/08/24 07/08/24 Range/Units 18:23 18:23 18:23 Hgb 12.6 (12.0-16.0) gm/dL D-Dimer Quant (PE/DVT) 0.30 (0.00-0.50) ug/ml Sodium 139 (135-149) mmol/L Potassium 3.7 (3.6-5.1) mmol/L Chloride 102 (96-114) mmol/L Carbon Dioxide 29 (20-32) mmol/L Anion Gap 8 (7-15) mEq/L BUN 17 (7-30) mg/dL Creatinine 0.7 (0.5-1.5) mg/dL Estimated Creat Clear 48.45 Estimated GFR 94 ml/min Glucose 94 (60-115) mg/dL Calcium 8.6 (8.4-10.6) mg/dL Troponin I Cancelled < 0.01 L C-Reactive Protein Cancelled < 0.5 L POC Troponin I 0.00 L (0.01-0.04) ng/ml Discharge Plan Discharge Clinical Impression: Atypical chest pain, Unifocal PVCs Patient Disposition: Home w/ Parent or Adult Condition: Stable Additional Instructions: Would check in with your primary care provider this coming week for follow-up. Return for marked increase in persistent chest pain, shortness of breath, lightheadedness. Prescriptions: No Action taurine 500 mg capsule 500 mg PO QDAY Magnesium Malate PO levothyroxine 125 mcg tablet 125 mcg PO QDAY 90 Days Qty: 90 3RF carvedilol [Coreg] 6.25 mg tablet 6.25 mg PO BID Qty: 180 3RF Rx Instructions: must administer with a meal/food Follow Up/Referrals: Sarai He, PIG FURNACE OPERATOR, STEELWORKER [Primary Care Provider] - Stand Alone Forms: MyHealth Info Instructions
--- OUTSIDE RECORDS SUMMARY | 2024-07-08 18:12 | XMS_ITS | Clinical Summary ---
Author Organization [employer] [facility] [employer] Address [address] [place] [address] Care Team Providers Care Electrical Fitter Name Role Phone [place], [place] Primary Care Provider + Allergies No [...] Department Care Team Description 07/08/2024 Nurse Triage [facility] [address] [place] [address] [place] Chest Pain 07/08/2024 Telephone [facility] [address] [facility] [address] [place] [address] Jacoby Dyer MD Pain (heart / chest pain ) 05/23/2024 Telephone [facility] [address] [place] [address] [place], [place] [phone] Jacoby Dyer MD Health Maintenance Update from [...] on file 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 Gender Identity Not on file Sexual Orientation [...] Comments LIPID PANEL Timed 04/05/2005 2:30 PM GRINDING MACHINE OPERATOR AUTOMATIC from Last 3 Months or Most Recently Relevant to Health Maintenance Results * LIPID PANEL (04/05/2005 2:30 PM GRINDING MACHINE OPERATOR AUTOMATIC) CHOLESTEROL,TOTAL 178 110 - 199 mg/dL [facility] TRIGLYCERIDES 108 40 - 149 mg/dL [facility] HDL CHOLESTEROL 73 >40 mg/dL [facility] CHOL/HDL RATIO 2.44 <4.51 [facility] LDL CHOLESTEROL 83 <131 mg/dL [facility] PATIENT STATUS Fasting [facility] 04/05/2005 2:30 PM GRINDING MACHINE OPERATOR AUTOMATIC 04/05/2005 6:35 PM GRINDING MACHINE OPERATOR AUTOMATIC us Nai Tomlin CHEMISTRY Final Result [facility] INTERNAL ZIP [address] [address] from Last 3 Months or Most Recently Relevant to Health Maintenance Insurance BLUE CROSS THREE AFFILIATED BLUE MR PB ONLY BLUE CROSS THREE AFFILIATED BLUE HB ONLY MEDICARE PART B HB ONLY Advance Directives * Full Code (Latest Code Status on File) Date Activated Date Inactivated Comments 11/15/2018 5:34 AM 11/15/2018 12:52 PM Care Teams Electrical Fitter Relationship Specialty Start Date End Date [facility] Alyssa Beltrán [address] [facility] [place] [id number] PCP - General 08/28/18
[2024-07-08 18:33] LABS: Hemoglobin* 12.6 gm/dL (12.0-16.0)
[2024-07-08 18:49] LABS: Chloride* 102 mmol/L (96-114); Potassium* 3.7 mmol/L (3.6-5.1); Sodium* 139 mmol/L (135-149)
[2024-07-08 18:52] LABS: Blood Urea Nitrogen* 17 mg/dL (7-30); Creatinine* 0.7 mg/dL (0.5-1.5); Est. Creatinine Clearance* 48.45; Estimated Glomerular Filt Rate 94 ml/min
[2024-07-08 18:53] LABS: Anion Gap 8 mEq/L (7-15); Calcium* 8.6 mg/dL (8.4-10.6); Carbon Dioxide* 29 mmol/L (20-32); Glucose* 94 mg/dL (60-115)
[2024-07-08 18:59] LABS: C Reactive Protein* < 0.5 mg/dL (0.5-1.0)
[2024-07-08 19:07] LABS: Troponin I* < 0.01 ng/mL (0.01-0.04)
--- NOTE | 2024-07-08 19:22 | CRLHL7_ITS ---
For Patients: As a result of the Century Cures Act, medical imaging exams and procedure reports are released immediately into your electronic medical record. You may view this report before your referring provider. If you have questions, please contact your health care provider. INDICATION: Ascending aortic aneurysm. Evaluate for dissection. TECHNIQUE: CTA chest was acquired with 95 cc Omnipaque 370 IV contrast. Multiplanar reformats were performed including axial MIP reconstructions. COMPARISON: None. FINDINGS: Heart and vasculature: Ectasia of the ascending thoracic aorta measuring up to 4.3 cm. No aortic dissection or penetrating atherosclerotic ulcer is appreciated. The main pulmonary artery is dilated to 3.3 cm. No pulmonary embolism is appreciated. Mild cardiomegaly. No pericardial effusion. Lungs and pleura: Scattered calcified granulomas. No suspicious pulmonary nodule or mass. No pulmonary consolidation. No pleural effusion or pneumothorax. There is bibasilar atelectasis. Lymph nodes/mediastinum: Calcified mediastinal and hilar lymph nodes likely reflecting sequelae of prior granulomatous disease. No suspicious lymphadenopathy. Chest wall: No chest wall mass or fluid collection. Upper abdomen: No acute abnormality appreciated. Colonic diverticulosis present. Bones: Multiple chronic appearing mild thoracic compression deformities. IMPRESSION: 1. Ectasia of the ascending thoracic aorta, measuring up to 4.[address] evidence of dissection or penetrating atherosclerotic ulcer. 2. Mild cardiomegaly. 3. Mild multilevel thoracic compression deformities, likely chronic, however clinical correlation recommended. If there is any clinical suspicion for recent compression fracture recommend further evaluation with MRI. Please note that all CT scans at this facility use dose modulation, iterative reconstruction, and/or weight-based dosing when appropriate to reduce radiation dose to as low as reasonably achievable. Dictated by Kyle Chilel MD @ 07/08/2024 10:02:32 PM (Electronically Signed)
[2024-07-08] MEDS: 0.9 % SODIUM CHLORIDE 500 ML 500 ML 1000 ML IV (20:16)
== END 2024-07-08 21:45 | disposition home or self-care (01) ==
PROVIDERS: Family Medicine; Emergency Provider Emergency Medicine Emergency Medical Services; PCP Nurse Practitioner Family
DX: R07.9 Chest pain, unspecified (principal); I49.3 Ventricular premature depolarization
CPT/HCPCS: 36415; 71275; 80048; 84484; 85018; 85379; 86140; 99284; J7030; Q9967

== ENCOUNTER 2024-08-22 08:52 | Outpatient (CLI) | payer MEDICARE, BC, SELFPAY | END 2024-08-22 08:53 | disposition home or self-care (01) | PROVIDERS: PCP Nurse Practitioner Family; Visit Provider Nurse Practitioner Family | DX: E03.9 Hypothyroidism, unspecified (principal); E78.5 Hyperlipidemia, unspecified; Z13.0 Encounter for screening for diseases of the blood and blood-forming organs and certain disorders involving the immune mechanism | CPT/HCPCS: 80053; 80061; 84439; 84443; 85025 ==

== ENCOUNTER 2024-08-28 08:17 | Outpatient (CLI) | payer MEDICARE, BC, SELFPAY ==
--- NOTE | 2024-08-28 08:30 | CRLHL7_ITS ---
For Patients: As a result of the Century Cures Act, medical imaging exams and procedure reports are released immediately into your electronic medical record. You may view this report before your referring provider. If you have questions, please contact your health care provider. DXA BONE MINERAL DENSITY STUDY Current height (in): 65. Weight (lb): 187. Menopause age: 51. Ethnicity: White. 1. Have you had a previous hip or vertebral fracture? No. 2. Have you had any fractures during your adult life which did not result from significant trauma (e.g., auto accident)? No. 3. Did either of your parents have a hip fracture? No. 4. Do you smoke? No. 5. Have you ever taken Glucocorticoids? No. 6. Do you have rheumatoid arthritis? No. 7. Do you have secondary osteoporosis? No. 8. Do you drink 3 or more alcoholic drinks per day? No. 9. Are you being treated for osteoporosis? No. 10. Have you ever taken any of the following medications: Actonel, Evista, Fosamax, Miacalcin, Reclast, Boniva, Forteo, HRT (i.e. estrogen/hormone therapy), Protelos, Prolia, Vitamin D, Calcium, other ??? please specify. ANSWER: No. 11. Do you have any of the following medical conditions: Anorexia or bulimia, asthma or emphysema, end stage renal disease, hyperparathyroidism, any seizure disorders, cancer, inflammatory bowel diseases, hysterectomy, other ??? please specify. ANSWER: Yes, Hyperparathyroidism. 12. What was your maximum height (inches)? 65. 13. Do you perform weight bearing exercise regularly? No. 14. Do you regularly consume dairy products? Yes. 15. Do you drink caffeinated beverages? No. 16. At what age did your period start? 15. 17. Are you premenopausal? No. 18. How many full term pregnancies have you had? 4. 19. Have you ever missed your period for more than 6 months in a row (not including or menopause)? No. TECHNIQUE: Bone mineral density study was performed using the [employer]. FINDINGS: The results of the study expressed as bone mineral density (BMD) are as follows: Lumbar spine L1 to L4: BMD: 0.728 g/cm2. T-score: -2.9. Z-score: -0.9. Neck Left: BMD: 0.597 g/cm2. T-score: -2.3. Z-score: -0.6. Right: BMD: 0.607 g/cm2. T-score: -2.2. Z-score: -0.5. Total Left: BMD: 0.717 g/cm2. T-score: -1.8. Z-score: -0.4. Right: BMD: 0.743 g/cm2. T-score: -1.6. Z-score: -0.2. IMPRESSION: Osteoporosis. Sadie Ferguson M.D. Diagnostic Radiologist [email or web address] LEÓN/rob DW/Dictated by: Sadie Ferguson MD @ 08/29/2024 7:31:00 AM (Electronically Signed)
--- NOTE | 2024-08-28 09:15 | CRLHL7_ITS ---
For Patients: As a result of the Century Cures Act, medical imaging exams and procedure reports are released immediately into your electronic medical record. You may view this report before your referring provider. If you have questions, please contact your health care provider. INDICATION: BILATERALSCREENING MAMMOGRAM, ASYMPTOMATIC 69 Y/O FEMALE COMPARISON: 01/08/23, 10/12/21, 09/30/20 TECHNIQUE: CC and MLO views were obtained. These mammographic images have been obtained using full-field digital technique. These mammographic images were interpreted with the benefit of computer aided detection and tomosynthesis. BREAST COMPOSITION: There are scattered areas of fibroglandular density. FINDINGS: No suspicious findings. ASSESSMENT: BI-RADS 1 Negative RECOMMENDATION: Annual screening mammogram. A lay language report of this examination will be provided to the patient. Dictated by: Vernon Crane MD @ 09/05/2024 12:57:22 (Electronically Signed)
== END 2024-08-28 08:18 | disposition home or self-care (01) ==
LOC: RAD 08:17
PROVIDERS: PCP Nurse Practitioner Family; Visit Provider Nurse Practitioner Family
DX: Z12.31 Encounter for screening mammogram for malignant neoplasm of breast (principal); Z13.820 Encounter for screening for osteoporosis; M81.0 Age-related osteoporosis without current pathological fracture; Z78.0 Asymptomatic menopausal state
CPT/HCPCS: 77063; 77067; 77080

== ENCOUNTER 2024-10-02 12:11 | Outpatient (CLI) | payer MEDICARE, BC, SELFPAY | END 2024-10-02 12:12 | disposition home or self-care (01) | PROVIDERS: PCP Nurse Practitioner Family; Visit Provider Nurse Practitioner Family | DX: M81.0 Age-related osteoporosis without current pathological fracture (principal) | CPT/HCPCS: 82306 ==

== ENCOUNTER 2024-11-10 09:42 | Outpatient (CLI) | payer MEDICARE, BC, SELFPAY ==
--- NOTE | 2024-11-10 10:57 | P.ANES_ITS ---
Anesthesia Charges Start Date/Time Anesthesia Start Date: 11/10/24 Anesthesia Start Time: 10:30 Stop Date/Time Anesthesia Stop Date: 11/10/24 Anesthesia Stop Time: 10:54 Coding CPT Codes CPT Codes: ANES LWR INTST NDSC NOS - 79924 ([id number]) P3 - PATIENT W/SEVERE SYS DISEASE, QK - TRUCK AND TRANSPORT MECHANIC 2-4 CNCRNT ANES PROC, QX - ELECTRIC METER READER SVC W/ MD MED DIRECTION
--- NOTE | 2024-11-10 10:57 | W.ANESCHARGE ---
Anesthesia Charges Start Date/Time Anesthesia Start Date: 11/10/24 Anesthesia Start Time: 10:30 Stop Date/Time Anesthesia Stop Date: 11/10/24 Anesthesia Stop Time: 10:54 Coding CPT Codes CPT Codes: ANES LWR INTST NDSC NOS - 78667 ([id number]) P3 - PATIENT W/SEVERE SYS DISEASE, QK - EVENTS DIRECTOR 2-4 CNCRNT ANES PROC, QX - BUSINESS BANKING MANAGER SVC W/ MD MED DIRECTION
--- NOTE | 2024-11-10 10:58 | P.ANES_ITS ---
Anesthesia Charges Start Date/Time Anesthesia Start Date: 11/10/24 Anesthesia Start Time: 10:30 Stop Date/Time Anesthesia Stop Date: 11/10/24 Anesthesia Stop Time: 10:54 Coding CPT Codes CPT Codes: ANES LWR INTST NDSC NOS - 20653 ([id number]) QK - MANUFACTURING DEVELOPMENT ENGINEER 2-4 CNCRNT ANES PROC, QX - DBA SVC W/ MED DIRECTION, P3 - PATIENT W/SEVERE SYS DISEASE
--- NOTE | 2024-11-10 10:58 | W.ANESCHARGE ---
Anesthesia Charges Start Date/Time Anesthesia Start Date: 11/10/24 Anesthesia Start Time: 10:30 Stop Date/Time Anesthesia Stop Date: 11/10/24 Anesthesia Stop Time: 10:54 Coding CPT Codes CPT Codes: ANES LWR INTST NDSC NOS - 76634 ([id number]) QK - DEWATERING FILTERING SUPERVISOR 2-4 CNCRNT ANES PROC, QX - HOOP DRIVING MACHINE OPERATOR HELPER SVC W/ MED DIRECTION, P3 - PATIENT W/SEVERE SYS DISEASE
--- OUTSIDE RECORDS SUMMARY | 2024-11-11 02:19 | XMS_ITS | Clinical Summary ---
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 Gender Identity Not on file Sexual Orientation [...] age 18+ 1974 Hepatitis C screening for ag e 18-79 1974 Pneumococcal series for age 50+ (1 of 2 - PCV) 1975 Tetanus booster 1976 Colonoscopy through age 75 2001 Mammogram for age 45-75 2001 Zoster (shingles) series for age 50+ (1 of 2) 2006 Lipids for age 45-75 04/05/2010 04/05/2005 DEXA/DXA scan for age 65+ 2021 Medicare Wellness for age 65+ 2021 COVID-19 vaccine series (1 - 2023-25 season) 2024 Influenza Vaccine (Season Ended) 2025 RSV vaccine for adults or (1 - 1-dose 75+ series) 2031 Hepatitis B series for 19+ Aged Out N o longer eligible based on patient's age to complete this topic Procedures Procedure Name Priority Date/Time Associated Diagnosis Comments LIPID PANEL Timed 04/05/2005 2:30 PM DOUGH CATCHER from Last 3 Months or Most Recently Relevant to Health Maintenance Results * LIPID PANEL (04/05/2005 2:30 PM DOUGH CATCHER) CHOLESTEROL,TOTAL 178 110 - 199 mg/dL [facility] TRIGLYCERIDES 108 40 - 149 mg/dL [facility] HDL CHOLESTEROL 73 >40 mg/dL [facility] CHOL/HDL RATIO 2.44 <4.51 [facility] LDL CHOLESTEROL 83 <131 mg/dL [facility] PATIENT STATUS Fasting [facility] 04/05/2005 2:30 PM DOUGH CATCHER 04/05/2005 6:35 PM DOUGH CATCHER us Nai Tomlin CHEMISTRY Final Result [facility] INTERNAL ZIP [phone] [address] from Last 3 Months or Most Recently Relevant to Health Maintenance Insurance BLUE CROSS FALSE PASS BLUE MR PB ONLY BLUE CROSS FALSE PASS BLUE HB ONLY MEDICARE PART B HB ONLY Advance Directives * Full Code (Latest Code Status on File) Date Activated Date Inactivated Comments 11/15/2018 5:34 AM 11/15/2018 12:52 PM Care Teams Electroencephalograph Technician Relationship Specialty Start Date End Date [facility] Alyssa Beltrán [address] [place] [id number] PCP - General 08/28/18
== END 2024-11-10 09:43 | disposition home or self-care (01) ==
LOC: OP CLINIC 09:44
PROVIDERS: PCP Nurse Practitioner Family; Visit Provider Surgery
DX: Z12.11 Encounter for screening for malignant neoplasm of colon (principal); Z86.0100 Personal history of colon polyps, unspecified; D12.3 Benign neoplasm of transverse colon; K57.30 Diverticulosis of large intestine without perforation or abscess without bleeding
CPT/HCPCS: 00811; 45385; J2704

== ENCOUNTER 2024-12-02 12:21 | Outpatient (CLI) | payer MEDICARE, BC, SELFPAY | END 2024-12-02 12:22 | disposition home or self-care (01) | PROVIDERS: PCP Nurse Practitioner Family; Visit Provider Nurse Practitioner Family | DX: E03.9 Hypothyroidism, unspecified (principal) | CPT/HCPCS: 84443 ==

== ENCOUNTER 2025-02-10 15:01 | Outpatient (CLI) | payer MEDICARE, BC, SELFPAY | END 2025-02-10 15:02 | disposition home or self-care (01) | PROVIDERS: PCP Nurse Practitioner Family; Visit Provider Nurse Practitioner Family | DX: R10.13 Epigastric pain (principal); R53.83 Other fatigue; M81.0 Age-related osteoporosis without current pathological fracture; Z13.6 Encounter for screening for cardiovascular disorders; Z13.0 Encounter for screening for diseases of the blood and blood-forming organs and certain disorders involving the immune mechanism | CPT/HCPCS: 80053; 80061; 82150; 82306; 82533; 82607; 82728; 83540; 83550; 83690; 84443; 85025; 85651; 86140 ==

== ENCOUNTER 2025-02-23 07:08 | Outpatient (CLI) | payer MEDICARE, BC, SELFPAY ==
--- NOTE | 2025-02-23 07:15 | CRLHL7_ITS ---
For Patients: As a result of the Century Cures Act, medical imaging exams and procedure reports are released immediately into your electronic medical record. You may view this report before your referring provider. If you have questions, please contact your health care provider. INDICATION: Epigastric pain COMPARISON: none TECHNIQUE: Real time soriano scale imaging and color Doppler analysis was performed of the right upper quadrant. FINDINGS: The patient`s liver is of normal size and has increased echogenicity. There is a normal appearance of the hepatic IVC and proximal abdominal aorta. There is no evidence of ascites. The gallbladder is of normal size and there is no evidence of intraluminal stones or sludge. The gallbladder wall measures 1 mm in thickness. The common bile duct is of normal size and measures 5 mm in diameter at the level of the waqar hepatis. The pancreas appears normal. There is no evidence of a stone or hydronephrosis within the right kidney. The right kidney measures 11.2 cm in length. IMPRESSION: Hepatic steatosis. Remainder unremarkable. Dictated by Vernon Crane MD @ 02/23/2025 9:35:42 AM (Electronically Signed)
== END 2025-02-23 07:09 | disposition home or self-care (01) ==
LOC: US 07:09
PROVIDERS: PCP Nurse Practitioner Family; Visit Provider Nurse Practitioner Family
DX: R10.13 Epigastric pain (principal); K76.0 Fatty (change of) liver, not elsewhere classified
CPT/HCPCS: 76705

== ENCOUNTER 2025-03-18 07:47 | Outpatient (CLI) | payer MEDICARE, BC, SELFPAY | END 2025-03-18 07:48 | disposition home or self-care (01) | LOC: RAD 07:48 | PROVIDERS: PCP Nurse Practitioner Family; Visit Provider Internal Medicine | DX: I77.819 Aortic ectasia, unspecified site (principal); I77.810 Thoracic aortic ectasia | CPT/HCPCS: 93306 ==